=== PATIENT | female | born 1935 | race Caucasian/White ===

== ENCOUNTER 2018-11-29 02:18 | Inpatient (IN) | payer MEDICARE, BC ==
[~2018-11-29] VITALS: Ht 160 cm; Wt 61.8 kg
[~2018-11-29 02:18] MED LIST: ATOR40TA71 PO; CARV-49 PO; CLOP75TA35 PO; DABI150C PO; FLUT1DIS4 INH; IPRA3AMP31 NEB; PANT40TA4 PO; PARO10TA23 PO; QUIN10TA PO; SPIIN INH
[2018-11-29] MEDS ORDERED: methylPREDNISolone sod succ 125mg/2ml vial IV ONE (02:30)
[2018-11-29] MEDS ORDERED: ipratropium/albuterol 3ml nebule NEB ONE (02:30)
[2018-11-29] MEDS ORDERED: iohexol 350MG/ML 100ml bottle IV ONE (02:42)
[2018-11-29 03:08] LABS: BASOPHILS % (AUTO) 0.5 % (0-1); EOSINOPHILS # (AUTO) 0.2 X10'3 (0-0.9); EOSINOPHILS % (AUTO) 1.6 % (0-6); HEMATOCRIT 31.7 % (35.0-45.0); HEMOGLOBIN 10.4 g/dl (12.0-16.0); LYMPHOCYTES # (AUTO) 0.5 X10'3 (1.1-4.8); LYMPHOCYTES % (AUTO) 4.8 % (21-51); MEAN CORPUSCULAR HEMOGLOBIN 26.7 PG (27.0-31.0); MEAN CORPUSCULAR HGB CONC 32.9 g/dL (33.0-36.5); MEAN CORPUSCULAR VOLUME 81.3 FL (78-98); MEAN PLATELET VOLUME 7.2 FL (7.4-10.4); MONOCYTES % (AUTO) 9.9 % (2-12); NEUTROPHILS # (AUTO) 8.1 X10'3 (1.8-7.7); NEUTROPHILS % (AUTO) 83.2 % (42-75); PLATELET COUNT 250 X10'3 (140-440); RED CELL DISTRIBUTION WIDTH 17.1 % (11.5-14.5); WHITE BLOOD COUNT 9.7 X10'3 (4.5-11.0)
[2018-11-29 03:21] LABS: PARTIAL THROMBOPLASTIN TIME 34 SECONDS (22-32)
[2018-11-29 03:22] LABS: ALANINE AMINOTRANSFERASE 14 U/L (12-78); ALBUMIN 2.3 G/DL (3.4-5.0); ALBUMIN/GLOBULIN RATIO 0.6 (1.1-1.5); ALKALINE PHOSPHATASE 103 IU/L (46-116); ANION GAP 9 (8-16); ASPARTATE AMINO TRANSFERASE 13 U/L (10-37); BILIRUBIN,TOTAL 0.6 MG/DL (0.1-1.0); BLOOD UREA NITROGEN 11 MG/DL (7-18); BUN/CREATININE RATIO 12.9 (6.6-38.0); CHLORIDE 104 MMOL/L (99-107); CREATININE 0.85 MG/DL (0.40-0.90); GLUCOSE 222 MG/DL (70-104); POTASSIUM 3.2 MMOL/L (3.5-5.1); SODIUM 137 MMOL/L (135-145); TOTAL PROTEIN 5.9 G/DL (6.4-8.2); eGFR 64 ML/MIN
[2018-11-29] MEDS ORDERED: furosemide 10 MG/1 ML 10ml inj IV ONE (03:35)
--- NOTE | 2018-11-29 04:01 | NUR ---
PER DR COFFMAN, 2 HOUR LACTIC REDRAW NOT NECESSARY. WILL CONTINUE TO MONITOR PT.
--- NOTE | 2018-11-29 04:02 | NUR ---
ASSISTED PT TO BEDSIDE COMMODE. [facility] CARE PROVIDED. PT PLACED BACK INTO BED AND TUCKED IN.
[2018-11-29] MEDS ORDERED: azithromycin/NS 500mg/250ml 250 ML IV ONE (04:45)
[2018-11-29] MEDS ORDERED: CefTRIAXone/D5W-Rocephin 1gm 50 ML IV ONE (04:45)
[2018-11-29] MEDS ORDERED: MONT10TA21 PO (05:10)
[2018-11-29] MEDS ORDERED: SOTA80TA73 PO (05:10)
[2018-11-29] MEDS ORDERED: ASPI-1265 PO (05:10)
[2018-11-29] MEDS ORDERED: normal saline 1000ml 1,000 ML IV SCH (05:27)
[2018-11-29] MEDS ORDERED: mag hydrox/Alum hydrox/simeth 30ml oral suspension PO PRN (05:30)
[2018-11-29] MEDS ORDERED: ondansetron/PF 4mg/2ml inj IV PRN (05:30)
[2018-11-29] MEDS ORDERED: acetaminophen 325mg tablet PO PRN (05:30)
[2018-11-29] MEDS ORDERED: magnesium hydroxide 30ml (MOM) UD suspension PO PRN (05:30)
[2018-11-29] MEDS ORDERED: albuterol 2.5 MG/3 ML nebule NEB PRN (05:35)
--- NOTE | 2018-11-29 05:41 | NUR ---
PT DAUGHTER AT BEDSIDE
[2018-11-29] MEDS ORDERED: non-formulary drug (Fluticasone/Salmeterol (Advair 250-50 Diskus) 1 PUFFS) INH SCH (08:00)
[2018-11-29] MEDS ORDERED: methylPREDNISolone sod succ/PF 40mg inj. IV SCH (08:00)
[2018-11-29] MEDS ORDERED: ipratropium 0.5 MG/2.5ML nebule NEB SCH (09:00)
[2018-11-29] MEDS ORDERED: ipratropium/albuterol 3ml nebule NEB SCH (09:00)
[2018-11-29] MEDS ORDERED: budesonide 0.5mg/2ml UD nebule IH SCH (09:00)
[2018-11-29 09:03] VITALS: BP 109/76
[2018-11-29] MEDS: pantoprazole 40mg Tablet.DR PO SCH (09:49)
[2018-11-29] MEDS: montelukast 10mg tablet PO SCH (09:49)
[2018-11-29] MEDS: lactobacillus rhamnosus 10,000 MMU CELLS/CAPSULE PO SCH ×2 (09:49→21:05)
[2018-11-29] MEDS: sotalol 80mg tablet PO SCH (09:50)
[2018-11-29] MEDS: PARoxetine 10mg tablet PO SCH (09:50)
[2018-11-29] MEDS: aspirin 81mg tab.chew PO SCH (09:50)
[2018-11-29] MEDS: clopidogrel 75mg tablet PO SCH (09:50)
[2018-11-29] MEDS: lisinopril 5mg tablet PO SCH (09:50)
[2018-11-29] MEDS: CefTRIAXone/D5W-Rocephin 1gm 50 ML IV SCH (09:54)
[2018-11-29] MEDS ORDERED: potassium Cl 20 mEq SR tablet PO PRN (10:20)
[2018-11-29] MEDS ORDERED: magnesium Cl slow-release 64mg tablet PO PRN (10:20)
[2018-11-29] MEDS ORDERED: magnesium 4gm in 100ml NS 100 ML IV PRN (10:20)
[2018-11-29] MEDS ORDERED: potassium CL 10mEq/100ml bag 100 ML IV PRN (10:20)
[2018-11-29] MEDS: dabigatran 150mg capsule PO SCH ×2 (10:59→21:05)
[2018-11-29 11:00] VITALS: BP 139/80
[2018-11-29] MEDS: ipratropium/albuterol 3ml nebule NEB SCH ×4 (11:11→23:15)
[2018-11-29] MEDS: azithromycin/NS 500mg/250ml 250 ML IV SCH (11:11)
[2018-11-29] MEDS: furosemide 40mg/4ml inj IV SCH ×2 (11:11→21:05)
[2018-11-29] MEDS: methylPREDNISolone sod succ 125mg/2ml vial IV SCH ×2 (14:46→21:05)
[2018-11-29 15:00] VITALS: BP 154/62
--- NOTE | 2018-11-29 18:30 | NUR ---
Patient in room PCU 3018. I have received report from Thomas RODRIGUEZ and had the opportunity to ask questions and assume patient care.
--- NOTE | 2018-11-29 18:34 | NUR ---
Problems reprioritized. Patient report given, questions answered & plan of care reviewed with Nate RN.
[2018-11-29 19:00] VITALS: BP 102/62
[2018-11-29] MEDS: atorvastatin 20mg tablet PO SCH ×2 (21:00→21:05)
[2018-11-29] MEDS: potassium Cl 20 mEq SR tablet PO PRN (21:05)
--- NOTE | 2018-11-29 21:05 | NUR ---
MEDICATION ADMINISTRATION patient identifiers were completed, patient was scanned, all medications were scanned and pt informed about each. before I could save, the computer . medications were given at this time and BP was 133/67 and HR 75. There were a lack of working computers at this time this is why medications were given in this manner.
[2018-11-29 23:00] VITALS: BP 109/50
[2018-11-30] MEDS: potassium Cl 20 mEq SR tablet PO PRN ×3 (02:05→13:11)
[2018-11-30] MEDS: methylPREDNISolone sod succ 125mg/2ml vial IV SCH ×3 (02:05→14:09)
[2018-11-30] MEDS: ipratropium/albuterol 3ml nebule NEB SCH ×3 (02:53→11:38)
[2018-11-30 03:00] VITALS: BP 125/85
[2018-11-30] MEDS ORDERED: amLODIPine 2.5mg tablet PO ONE (03:15)
[2018-11-30 06:00] VITALS: BP 143/73
[2018-11-30 06:33] LABS: BASOPHILS % (AUTO) 0.1 % (0-1); EOSINOPHILS % (AUTO) 0 % (0-6); HEMOGLOBIN 10.6 g/dl (12.0-16.0); LYMPHOCYTES # (AUTO) 0.6 X10'3 (1.1-4.8); MEAN CORPUSCULAR HEMOGLOBIN 25.9 PG (27.0-31.0); MEAN CORPUSCULAR VOLUME 80.7 FL (78-98); MEAN PLATELET VOLUME 7.5 FL (7.4-10.4); MONOCYTES # (AUTO) 0.4 X10'3 (0-0.9); MONOCYTES % (AUTO) 3.1 % (2-12); NEUTROPHILS # (AUTO) 10.5 X10'3 (1.8-7.7); NEUTROPHILS % (AUTO) 91.8 % (42-75); PLATELET COUNT 280 X10'3 (140-440); RED BLOOD COUNT 4.09 X10'6 (4.20-5.60); RED CELL DISTRIBUTION WIDTH 17.3 % (11.5-14.5); WHITE BLOOD COUNT 11.4 X10'3 (4.5-11.0)
--- NOTE | 2018-11-30 06:45 | NUR ---
Problems reprioritized. Patient report given, questions answered & plan of care reviewed with Thomas Huff RN.
[2018-11-30 06:48] LABS: ALANINE AMINOTRANSFERASE 13 U/L (12-78); ALBUMIN 2.3 G/DL (3.4-5.0); ALBUMIN/GLOBULIN RATIO 0.6 (1.1-1.5); ALKALINE PHOSPHATASE 95 IU/L (46-116); ANION GAP 9 (8-16); ASPARTATE AMINO TRANSFERASE 18 U/L (10-37); BILIRUBIN,TOTAL 0.6 MG/DL (0.1-1.0); BLOOD UREA NITROGEN 19 MG/DL (7-18); BUN/CREATININE RATIO 24.4 (6.6-38.0); CALCIUM 7.9 MG/DL (8.5-10.1); CHLORIDE 109 MMOL/L (99-107); CREATININE 0.78 MG/DL (0.40-0.90); GLUCOSE 164 MG/DL (70-104); MAGNESIUM 1.5 MG/DL (1.5-2.4); POTASSIUM 3.2 MMOL/L (3.5-5.1); SODIUM 145 MMOL/L (135-145); TOTAL CARBON DIOXIDE 26.7 MMOL/L (24-32); eGFR 70 ML/MIN
[2018-11-30] MEDS: dabigatran 150mg capsule PO SCH (07:43)
[2018-11-30] MEDS: pantoprazole 40mg Tablet.DR PO SCH (07:43)
[2018-11-30] MEDS: lisinopril 5mg tablet PO SCH (07:43)
[2018-11-30] MEDS: clopidogrel 75mg tablet PO SCH (07:43)
[2018-11-30] MEDS: lactobacillus rhamnosus 10,000 MMU CELLS/CAPSULE PO SCH (07:44)
[2018-11-30] MEDS: montelukast 10mg tablet PO SCH (07:44)
[2018-11-30] MEDS: sotalol 80mg tablet PO SCH (07:44)
[2018-11-30] MEDS: PARoxetine 10mg tablet PO SCH (07:44)
[2018-11-30] MEDS: aspirin 81mg tab.chew PO SCH (07:44)
[2018-11-30] MEDS: furosemide 40mg/4ml inj IV SCH (07:48)
[2018-11-30] MEDS: CefTRIAXone/D5W-Rocephin 1gm 50 ML IV SCH (07:49)
[2018-11-30] MEDS: azithromycin/NS 500mg/250ml 250 ML IV SCH (09:45)
[2018-11-30 11:00] VITALS: BP 145/68
--- NOTE | 2018-11-30 11:39 | NUR ---
PAGER ID: [phone] MESSAGE: [id number] Suzie Garcia: Latic acid lab resulted. JENNIFER Guzman ext [phone]
[2018-11-30] MEDS ORDERED: LACT1CAP26 PO (14:34)
[2018-11-30] MEDS ORDERED: AZIT500T9 PO (14:34)
[2018-11-30] MEDS ORDERED: CEFD300C3 PO (14:34)
[2018-11-30] MEDS ORDERED: PRED10TA23 PO (14:34)
--- NOTE | 2018-11-30 14:38 | NUR ---
PAGER ID: [phone] MESSAGE: [id number] Vanessa Anderson ambulated 300 feet without any difficulty. JENNIFER Guzman Ext [phone]
--- NOTE | 2018-11-30 15:17 | NUR ---
[facility] Patient discharged. IV taken out. Educated on aspiration precautions, and medications. Stable for MD to CLAUDE.
== END 2018-11-30 15:20 | disposition home health service (06) | DRG 190 ==
LOC: ER 02:18 → ED HOLD 05:27 → PCU 3S 09:08
PROVIDERS: ADMIT Internal Medicine; ATTEND Family Medicine
PROC: B32T1ZZ Computerized Tomography (CT Scan) of Left Pulmonary Artery using Low Osmolar Contrast (ICD-10-PCS; principal; 2018-11-29)
PROC: B3201ZZ Computerized Tomography (CT Scan) of Thoracic Aorta using Low Osmolar Contrast (ICD-10-PCS; 2018-11-29)
PROC: B32S1ZZ Computerized Tomography (CT Scan) of Right Pulmonary Artery using Low Osmolar Contrast (ICD-10-PCS; 2018-11-29)
DX: J43.9 Emphysema, unspecified (principal); J18.1 Lobar pneumonia, unspecified organism; I10 Essential (primary) hypertension; I27.20 Pulmonary hypertension, unspecified; I48.91 Unspecified atrial fibrillation; I67.9 Cerebrovascular disease, unspecified; G43.909 Migraine, unspecified, not intractable, without status migrainosus; K21.9 Gastro-esophageal reflux disease without esophagitis; Z79.02 Long term (current) use of antithrombotics/antiplatelets; Z79.82 Long term (current) use of aspirin; Z79.899 Other long term (current) drug therapy; Z86.73 Personal history of transient ischemic attack (TIA), and cerebral infarction without residual deficits; Z99.81 Dependence on supplemental oxygen; Z87.891 Personal history of nicotine dependence; Z88.2 Allergy status to sulfonamides; Z90.49 Acquired absence of other specified parts of digestive tract; Z98.51 Tubal ligation status; Z98.891 History of uterine scar from previous surgery; Z82.3 Family history of stroke
CPT/HCPCS: 36415; 71045; 71275; 80053; 83605; 83735; 83880; 84100; 84145; 84484; 85025; 85610; 85730; 87040; 87081; 93005; 93306; 94640; 94760; 96365; 96375; 99285; G0378; J0456; J0696; J1940; J2920; J2930; Q9967

== ENCOUNTER 2019-05-06 15:03 | Emergency (ER) | payer MEDICARE, BC ==
[~2019-05-06] VITALS: Ht 165.1 cm; Wt 59.1 kg
[~2019-05-06 15:03] MED LIST changes: -CARV-49 PO; -CLOP75TA35 PO; -DABI150C PO; +IRON150C5 PO; +MONT10TA21 PO; +SOTA80TA73 PO
[2019-05-06 15:34] VITALS: BP 119/51
[2019-05-06] MEDS ORDERED: LORazepam 2 mg/ml vial IV ONE (16:25)
[2019-05-06] MEDS ORDERED: morphine 4 MG/ML inj SYRINge IV ONE (16:25)
--- NOTE | 2019-05-06 16:30 | NUR ---
PTS FAMILY HAS DECIDED NO MORE INTERVENTIONS. PROVIDER ASSESSMENT WAS COMPLETED. ALL DX ORDERS WILL BE CANCELLED
--- NOTE | 2019-05-06 16:31 | NUR ---
rt has tried multilple times with2x rt for abg with no flash. family has decided to proceed with comfort measures. md torres
[2019-05-06] MEDS ORDERED: LORA-269 PO (16:40)
[2019-05-06] MEDS ORDERED: MORP15TA PO (16:40)
[2019-05-06] MEDS ORDERED: ondansetron/PF 4mg/2ml inj IV ONE (16:45)
[2019-05-06] MEDS ORDERED: morphine 4 MG/ML inj SYRINge IV PRN (16:45)
== END 2019-05-06 19:04 ==
LOC: ER 15:03
DX: R06.03 Acute respiratory distress (principal); F03.90 Unspecified dementia, unspecified severity, without behavioral disturbance, psychotic disturbance, mood disturbance, and anxiety; G43.909 Migraine, unspecified, not intractable, without status migrainosus; I48.91 Unspecified atrial fibrillation; I10 Essential (primary) hypertension; J44.9 Chronic obstructive pulmonary disease, unspecified; Z86.73 Personal history of transient ischemic attack (TIA), and cerebral infarction without residual deficits; Z90.49 Acquired absence of other specified parts of digestive tract; Z87.59 Personal history of other complications of pregnancy, childbirth and the puerperium; Z98.51 Tubal ligation status; Z98.890 Other specified postprocedural states; Z88.2 Allergy status to sulfonamides; Z79.899 Other long term (current) drug therapy
CPT/HCPCS: 93005; 96374; 96375; 96376; 99284; J2060; J2270; J2405